=== PATIENT | male | born 1995 | race Caucasian/White ===

== ENCOUNTER 2018-09-07 15:17 | Outpatient (CLI) | payer OTHER ==
--- NOTE | 2018-09-07 17:05 | MRI ---
MRI BRAIN AND ORBITS WITH AND WITHOUT CONTRAST: DATE: 09/07/2018 HISTORY: 22-year-old male with intermittent heterotropia and diplopia. TECHNIQUE: Multiplanar, multisequence MRI of the brain obtained pre and post IV injection of gadolinium based co ntrast agent. Both whole brain sequences and thin slices through the orbits were obtained. FINDINGS: The ventricles are normal in size and configuration. There is no midline shift or any other evidence of mass effect. There is no extra-axial fluid collection. There is no intra-axial signal abnormality, abnormal enhancement, mass, recent hemorrhage, or restricted diffusion. Optic nerves are bilaterally symmetrical in size with homogeneous, normal signal and no abnormal enhancement. Optic chiasm appears normal with no extrinsic compression. No signal abnormality of optic tracts. Extraocul ar muscles are normal and symmetrical bilaterally. No intraorbital mass, edema, or abnormal enhancement. Bilateral globes are normal. Cavernous sinuses are normal. IMPRESSION: Normal
== END 2018-09-07 15:18 | disposition home or self-care (01) ==
LOC: SCSMRI 15:17
PROVIDERS: ATTEND Ophthalmology Pediatric Ophthalmology and Strabismus Specialist
DX: H50.32 Intermittent alternating esotropia (principal); H53.2 Diplopia
CPT/HCPCS: 70553